=== PATIENT | male | born 1970 | race Caucasian/White ===

== ENCOUNTER 2018-05-03 18:32 | Emergency (ER) | payer OTHER ==
[~2018-05-03] VITALS: Ht 177.8 cm; Wt 88.5 kg
[2018-05-03 20:21] LABS: ABSOLUTE BASOPHIL COUNT 0.1 /CUMM (0.0-0.2); ABSOLUTE EOSINOPHIL COUNT 0.2 /CUMM (0.0-0.7); ABSOLUTE GRANULOCYTE CT 10.2 /CUMM (1.4-6.5); ABSOLUTE LYMPH COUNT 1.8 /CUMM (1.2-3.4); BASOPHIL % 0.6 % (0.0-2.0); EOSINOPHIL % 1.3 % (0-5); GRANULOCYTE % 76.9 % (42.2-75.2); HEMATOCRIT 48.3 % (42-52); MEAN CORPUSCULAR HGB 30.2 PG (27.0-31.0); MEAN CORPUSCULAR HGB CONC 34.4 G/DL (33.0-37.0); MEAN CORPUSCULAR VOLUME 87.9 FL (80.0-94.0); MEAN PLATELET VOLUME 8.4 FL (7.4-10.4); PLATELET COUNT 276 /CUMM (130-400); RBC DISTRIBUTION WIDTH 13.1 % (11.5-14.5); RED BLOOD CELL CT 5.49 /CUMM (4.70-6.10); WHITE BLOOD CELL COUNT 13.2 /CUMM (4.8-10.8)
--- NOTE | 2018-05-03 21:06 | ED GI/GU/ABDOMINAL COMPLAINT ---
History of Present Illness General Chief Complaint: General Adult Stated Complaint: PAIN ON LOWER LEFT SIDE Source: patient Exam Limitations: no limitations Vital Signs & Intake/Output Vital Signs & Intake/Output Vital Signs Date Time Temp Pulse Resp B/P B/P Pulse O2 O2 Flow FiO2 Mean Ox Delivery Rate 05/04 0026 97.4 76 18 148/91 97 Room Air 05/04 0024 97 Room Air 05/03 1913 97.3 77 18 158/100 98 Room Air ED Intake and Output 05/04 0000 05/03 1200 Intake Total Output Total Balance Patient 195 lb Weight Weight Reported by Patient Measurement Method Allergies Coded Allergies: NO KNOWN ALLERGIES (10/01/12) Reconcile Medications Ibuprofen 800 MG TABLET 1 TAB PO TID PRN pain Ondansetron (Zofran Odt) 4 MG TAB.RAPDIS 1 TAB SL TID PRN nausea Oxycodone HCl/Acetaminophen (Percocet 5-325 MG Tablet) 5 MG-325 MG TABLET 1 TAB PO 4XDP PRN PAIN TEN...[id number] Triage Note: PT FROM HOME C/O LEFT FLANK PAIN SINCE SUNDAY INTERMITTENTLY AFTER EATING. PT STATES PAIN IS A BURNING SENSATION THAT RADIATES TO BACK. PT STATES NAUSEA, DENIES VOMITING. PT DENIES CP, ARM NUMBNESS/TINGLING. PT STATES MEDICATED WITH TYLENOL, OEMPRAZAOLE AND PEPTO BISMOL WITHOUT RELIEF. Triage Nurses Notes Reviewed? yes Onset: Gradual Duration: hour(s): Timing: recent history Quality/Severity: sharpness Location: left flank Radiation: back Activities at Onset: none Modifying Factors: Worsens With: other (NAUSEA). Associated Symptoms: nausea/vomiting HPI: 39-year-old gentleman presents with 3 days of intermittent left lower quadrant and left flank abdominal pain. He notes occasional episodes of nausea. He has had several similar episodes over the past few months, and has been evaluated by a hospitalist program director who diagnosed him with gastric ulcers. He takes a proton pump inhibitor. He notes that at present he has no pain. He notes no fever chills chest pain shortness of breath diarrhea dysuria or gross hematuria. He is otherwise well and has no other concerns. Past History Travel History Traveled to [place] past 21 day No Medical History Any Pertinent Medical History? see below for history Cardiovascular: hyperlipidemia Respiratory: asthma Gastrointestinal: GERD, ULCER Surgical History Surgical History: none Psychosocial History What is your primary language Palauan Tobacco Use: Never used Family History Hx Contributory? No Review of Systems Review of Systems Constitutional: Reports: no symptoms. EENTM: Reports: no symptoms. Respiratory: Reports: no symptoms. Cardiovascular: Reports: no symptoms. GI: Reports: no symptoms. Genitourinary: Reports: no symptoms. Musculoskeletal: Reports: no symptoms. Skin: Reports: no symptoms. Neurological/Psychological: Reports: no symptoms. Hematologic/Endocrine: Reports: no symptoms. Immunologic/Allergic: Reports: no symptoms. All Other Systems: Reviewed and Negative Physical Exam Physical Exam General Appearance: well developed/nourished, no apparent distress Head: atraumatic, normal appearance Eyes: Bilateral: normal appearance. Ears, Nose, Throat, Mouth: hearing grossly normal, moist mucous membrane Neck: normal inspection, supple Respiratory: normal breath sounds, chest non-tender, no respiratory distress, quiet respiration, lungs clear Cardiovascular: regular rate/rhythm Gastrointestinal: normal bowel sounds, soft, non-tender, no organomegaly Back: normal inspection Extremities: normal range of motion Neurologic/Psych: no motor/sensory deficits, awake, alert, oriented x 3 Skin: intact, normal color, warm/dry Core Measures ACS in differential dx? No Sepsis Present: No Sepsis Focused Exam Completed? No Progress Differential Diagnosis: ureterolithiasis, urinary retention, urethritis Plan of Care: Orders Procedure Date/time Status URINALYSIS 05/03 1916 Complete COMPREHENSIVE METABOLIC PANEL 05/03 1916 Complete CBC WITHOUT DIFFERENTIAL 05/03 1916 Complete Laboratory Tests 05/03/182011: Urine Color YEL, Urine Clarity CLEAR, Urine pH 6.0, Ur Specific [place] 1.020, Urine Protein NEG, Urine Ketones NEG, Urine Nitrite NEG, Urine Bilirubin NEG, Urine Urobilinogen 0.2, Ur Leukocyte Esterase TRACE H, Ur Microscopic SEDIMENT EXAMINED, Urine RBC 10-15 H, Urine WBC 5-10 H, Ur Epithelial Cells FEW, Urine Bacteria FEW H, Urine Mucus MANY H, Urine Hemoglobin MOD H, Urine Glucose NEG 05/03/182006: Anion Gap 12, Estimated GFR > 60, BUN/Creatinine Ratio 20.0, Glucose 100 H, Calcium 10.8 H, Total Bilirubin 0.7, AST 34, ALT 42, Alkaline Phosphatase 100, Total Protein 7.7, Albumin 4.7, Globulin 3.0, Albumin/Globulin Ratio 1.6, CBC w Diff NO MAN DIFF REQ, RBC 5.49, MCV 87.9, MCH 30.2, MCHC 34.4, RDW 13.1, MPV 8.4 , Gran % 76.9 H, Lymphocytes % 13.6 L, Monocytes % 7.6, Eosinophils % 1.3, Basophils % 0.6, Absolute Granulocytes 10.2 H, Absolute Lymphocytes 1.8, Absolute Monocytes 1.0 H, Absolute Eosinophils 0.2, Absolute Basophils 0.1 Diagnostic Imaging: Viewed by Me: CT Scan. Discussed w/RAD: CT Scan. Initial ED EKG: none Departure Departure Disposition: HOME OR SELF CARE Condition: Stable Clinical Impression Primary Impression: Abdominal pain Secondary Impressions: Renal colic on left side Referrals: Maria Del Carmen CANELA,Coco Ivory (PCP/Family) Departure Forms: Customer Survey General Discharge Information Prescriptions: Current Visit Scripts Ibuprofen 1 TAB PO TID PRN pain #30 TAB Oxycodone HCl/Acetaminophen (Percocet 5-325 MG Tablet) 1 TAB PO 4XDP PRN PAIN #10 TAB TEN...[id number] Ondansetron (Zofran Odt) 1 TAB SL TID PRN nausea #10 TAB Comments 05/04/18, 0:15am... discussed with patient.... pt with stone in left ureter... pt feels well in ED and will follow up with the urologist this Sunday.
--- NOTE | 2018-05-03 23:56 | CT SCAN REPORT ---
EXAMINATION: CT ABDOMEN AND PELVIS WITHOUT CONTRAST CLINICAL INFORMATION: Left renal colic COMPARISON: None TECHNIQUE: Multidetector volumetric imaging was performed from the superior aspect of the liver through the pubic symphysis. Sagittal and coronal reformatted images were obtained on the technologist's workstation. DLP: 570 mGy-cm FINDINGS: LUNG BASES: There is some hazy opacity at the right base likely reflecting atelectasis less likely evolving pneumonia LIVER, GALLBLADDER, AND BILIARY TREE: The liver is normal in size, shape, and attenuation. No focal hepatic lesion or biliary ductal dilatation is present. The gallbladder is unremarkable with no evidence of radiopaque gallstones, gallbladder wall thickening, or obvious pericholecystic inflammatory changes. PANCREAS: Unremarkable. SPLEEN: Unremarkable. ADRENAL GLANDS: Unremarkable. KIDNEYS AND URETERS: There is a partially obstructing proximal ureteral calculus located approximately 2.5 cm distal to the UP junction. There is mild dilatation of the collecting system proximal to the stone. There is minimal if any perinephric stranding and minimal if any enlargement of the left kidney. The ureter is normal distal to the stone. The kidneys are otherwise unremarkable Right ureter normal BLADDER: Unremarkable. GASTROINTESTINAL TRACT: Appendix not visualized. However no inflammatory changes in the right lower quadrant. The bowel and stomach are otherwise normal. ABDOMINAL WALL: There is a mild to moderate size right fat-containing inguinal hernia measuring 3.5 cm transverse LYMPH NODES: Normal. VASCULAR: Mild arterial calcification PELVIC VISCERA: Unremarkable. OSSEOUS STRUCTURES: Unremarkable. IMPRESSION: Partially obstructing proximal left ureteral calculus Mild to moderate size fat-containing inguinal hernia Mild calcific atherosclerotic disease
[2018-05-04] MEDS ORDERED: IBUPROFEN800 M1 PO (00:14)
[2018-05-04] MEDS ORDERED: ZOFRAN ODT4 M1 SL (00:14)
[2018-05-04] MEDS ORDERED: PERCOCET 5-3251 EACH PO (00:14)
[2018-05-04 00:26] VITALS: BP 148/91
== END 2018-05-04 00:26 ==
LOC: ERH 18:32
PROVIDERS: Physician Assistant
DX: R10.9 Unspecified abdominal pain (principal); N23 Unspecified renal colic
CPT/HCPCS: 74176; 81001